=== PATIENT | female | born 1985 | race African-American/Black ===

== ENCOUNTER 2019-07-16 02:31 | Emergency (ER) | payer OTHER ==
[~2019-07-16] VITALS: Ht 167.6 cm; Wt 89.8 kg
[2019-07-16 02:32] VITALS: BP 134/94
== END 2019-07-16 03:28 | disposition home or self-care (01) ==
LOC: ER 02:31
DX: L50.8 Other urticaria (principal); T63.481A Toxic effect of venom of other arthropod, accidental (unintentional), initial encounter; F17.210 Nicotine dependence, cigarettes, uncomplicated; J45.909 Unspecified asthma, uncomplicated; F12.90 Cannabis use, unspecified, uncomplicated; Y92.89 Other specified places as the place of occurrence of the external cause